=== PATIENT | female | born 2000 | race American Indian/Alaskan Native ===

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

== ENCOUNTER 2018-10-01 21:36 | Emergency (ER) | payer MEDICAID ==
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
[2018-10-01] MEDS ORDERED: NACL 0.9% 1000 ML 1,000 ML ONE ×3 (22:01→22:02)
[2018-10-01 22:09] LABS: Basophils % (Auto) 0.3 % (0.0-1.8); Eosinophils # (Auto) 0.1 K/mm3 (0.0-0.4); Eosinophils % (Auto) 0.9 % (0.0-4.3); Hemoglobin 11.2 gm/dl (10.1-14.3); Lymphocytes # (Auto) 1.6 K/mm3 (1.2-5.4); Mean Corpuscular HGB Conc 33 % (30-34); Mean Corpuscular Volume 80 fl (79-97); Monocytes # (Auto) 0.3 K/mm3 (0.0-0.8); Monocytes % (Auto) 5.5 % (0.0-7.3); Platelet Count 162 K/mm3 (140-440); Red Blood Count 4.27 M/mm3 (3.65-5.03); Red Cell Distribution Width 16.4 % (13.2-15.2)
[2018-10-01 22:19] LABS: INR 1.16 (0.87-1.13)
[2018-10-01 22:20] LABS: Partial Thromboplastin Time 28.1 Sec. (24.2-36.6)
[2018-10-01 22:28] LABS: BUN/Creatinine Ratio 13; Blood Urea Nitrogen 9 mg/dL (7-17); Calcium 8.8 mg/dL (8.4-10.2); Hemolysis Index 6
[2018-10-01] MEDS ORDERED: NACL 0.9% 1000 ML 1,000 ML IV ONE (22:43)
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
[2018-10-01 23:25] VITALS: BP 113/80
== END 2018-10-01 23:27 | disposition other institution (70) ==
LOC: ED 21:36
DX: S01.00XA Unspecified open wound of scalp, initial encounter (principal); Z79.82 Long term (current) use of aspirin; Z79.1 Long term (current) use of non-steroidal anti-inflammatories (NSAID); Z79.899 Other long term (current) drug therapy; W33.01XA Accidental discharge of shotgun, initial encounter; Y93.89 Activity, other specified; Y92.89 Other specified places as the place of occurrence of the external cause; Y99.8 Other external cause status
CPT/HCPCS: 36415; 36430; 36556; 70450; 71045; 72125; 80048; 84703; 85025; 85610; 85730; 86850; 86900; 86901; 86920; 99291; J7030; P9016; 51702; 94002